=== PATIENT | male | born 1980 | race Caucasian/White ===

== ENCOUNTER 2016-06-23 22:04 | Emergency (ER) | payer OTHER ==
[2016-06-23 22:17] VITALS: BP 138/83; PULSE 80; TEMP 98.2; BMI 31.0
[2016-06-23] MEDS ORDERED: CEPHALEXIN MONOHYDRATE 500 MG CAPSULE (UD) PO ONE (22:39)
[2016-06-23] MEDS ORDERED: FLUCONAZOLE 100 MG TABLET (UD) PO ONE (22:39)
--- NOTE | 2016-06-23 22:39 | PDOC ---
History of Present Illness <Juma Cobb - Last Filed: 06/23/16 22:40> - General History Source: Patient Exam Limitations: No Limitations - History of Present Illness Initial Comments: 06/23/16 22:39 The patient is a 35 year old male with no significant past medical history who presents to the ED with 2 days of penile pain and swelling. Patient states he is in a monogamous relationship with his . His last unprotected sexual intercourse was on Thursday. He states the following day he developed penile pain and swelling with fever. He denies penile discharge. Patient states his was recently diagnosed with marjorie yeast infection and was treated. However, he did not seek medical treatment. The patient denies chills, cough, SOB, chest pain, and palpitations. The patient denies abdominal pain, nausea, vomiting, and diarrhea. The patient denies dysuria, hematuria, urgency, and frequency. Allergies: NKDA Social History: No alcohol, tobacco, or drug use reported. Past Surgical History: hernia repair PCP: Dr. Everett Ha <Mariaa Mendez - Last Filed: 06/23/16 22:41> - General Chief Complaint: Pain, Acute Stated Complaint: SWOLLEN TESTICLES Time Seen by Provider: 06/23/16 22:26 Past History - Past Medical History Other medical history: denies - Immunization History Immunization Up to Date: Yes - Psycho/Social/Smoking Cessation Hx Anxiety: No Suicidal Ideation: No Smoking History: Never smoked Hx Alcohol Use: No <Juma Cobb - Last Filed: 06/23/16 22:40> <Mariaa Mendez - Last Filed: 06/23/16 22:41> - Past Medical History Allergies/Adverse Reactions: Allergies Allergy/AdvReac Type Severity Reaction Status Date / Time No Known Allergies Allergy Verified 06/23/16 22:12 Home Medications: Ambulatory Orders Cephalexin [Keflex] 500 mg PO QID #28 capsule 06/23/16 Review of Systems - Review of Systems Able to Perform ROS?: Yes Is the patient limited Guyanese proficient: No Constitutional: Yes: Symptoms Reported, See HPI, Fever Respiratory: No: Symptoms reported Cardiac (ROS): No: Symptoms Reported ABD/GI: No: Symptoms Reported : Yes: Symptoms Reported, See HPI, Pain, Other (SHAFT SWELLING X 2 DAYS). No : Dysuria, Discharge, Frequency, Flank Pain, Hematuria, Incontinence, Testicular Mass, Testicular Swelling Integumentary: Yes: Symptoms Reported, See HPI, Change in Color All Other Systems: Reviewed and Negative <Juma Cobb - Last Filed: 06/23/16 22:40> - Review of Systems Able to Perform ROS?: Yes <Mariaa Mendez - Last Filed: 06/23/16 22:41> *Physical Exam - Vital Signs Last Vital Signs Temp Pulse Resp BP Pulse Ox 98.2 F 80 18 138/83 100 06/23/16 22:12 06/23/16 22:12 06/23/16 22:12 06/23/16 22:12 06/23/16 22:12 - Physical Exam General Appearance: Yes: Nourished, Appropriately Dressed. No: Apparent Distress HEENT: positive: Normal ENT Inspection Neck: positive: Supple. negative: Tender Respiratory/Chest: positive: Normal Breath Sounds. negative: Respiratory Distress Cardiovascular: positive: Regular Rhythm Gastrointestinal/Abdominal: positive: Normal Bowel Sounds, Soft Male Genitalia: positive: other (EDEMATOUS SHAFT W/ ERYTHEMA OF THE BASE AND LAD LT GROIN. GLANDS NOT EDEMATOUS). negative: discharge, testicular tenderness , testicular mass, epididymus tender, inguinal hernia, CVAT Musculoskeletal: positive: Normal Inspection. negative: CVA Tenderness <Juma Cobb - Last Filed: 06/23/16 22:40> - Vital Signs Last Vital Signs Temp Pulse Resp BP Pulse Ox 98.2 F 80 18 138/83 100 06/23/16 22:12 06/23/16 22:12 06/23/16 22:12 06/23/16 22:12 06/23/16 22:12 <Mariaa Mendez - Last Filed: 06/23/16 22:41> Progress Note - Progress Note Progress Note: BASED ON HX THIS IS LIKELY CANDIDIASIS BUT COULD ALSO BE CELLULITIS WILL START ON ABX AND SYMPTOMATIC TREATMENT WILL FOLLOW P WITH HIS DOCTOR TOMORROW <Juma Cobb - Last Filed: 06/23/16 22:40> *DC/Admit/Observation/Transfer <Juma Cobb - Last Filed: 06/23/16 22:40> - Attestations Scribe Attestion: 06/23/16 22:39 Documentation prepared by Mariaa Mendez, acting as durable medical equipment repairer for Juma Cobb MD <Mariaa Mendez - Last Filed: 06/23/16 22:41> Diagnosis at time of Disposition: Cellulitis, penis - Discharge Dispostion Disposition: HOME Condition at time of disposition: Stable - Prescriptions Prescriptions: Cephalexin [Keflex] 500 mg PO QID #28 capsule - Referrals Referrals: Everett Ha MD [Primary Care Provider] - Call tomorrow - Patient Instructions Additional Instructions: TAKE MEDICATIONS PRESCRIBED IBUPROFEN 400 MG 3 TIMES A DAY FOR 3 DAYS WARM COMPRESSES TO AREA 4-6 TIMES A DAY REST SEE YOUR DOCTOR TOMORROW RETURN IF WORSENING OR NEW SYMPTOMS
[2016-06-23] MEDS ORDERED: FLUCONAZOLE 100 MG TABLET (UD) ONE (22:46)
[2016-06-23] MEDS ORDERED: CEPHALEXIN MONOHYDRATE 250 MG CAPSULE (FP) ONE (22:46)
== END 2016-06-23 22:54 | disposition home or self-care (01) ==
LOC: JER 22:04
DX: N48.22 Cellulitis of corpus cavernosum and penis (principal)
CPT/HCPCS: 99281-25; 99282-25

== ENCOUNTER 2019-08-18 15:26 | Emergency (ER) | payer OTHER ==
[2019-08-18 15:47] VITALS: BP 132/82; PULSE 89; TEMP 98.3; BMI 32.3
--- NOTE | 2019-08-18 15:47 | PDOC ---
Rapid Medical Evaluation Chief Complaint: Shortness of Breath Time Seen by Provider: 08/18/19 15:42 Medical Evaluation: Allergies Allergy/AdvReac Type Severity Reaction Status Date / Time No Known Allergies Allergy Verified 06/23/16 22:12 08/18/19 15:43 Pt c/o: sent from [facility], sudden onset of rt sided back pain with mild dyspnea, no injury or heavy lifting, works as service line bus cleaner Pt on brief exam: lcta, vss, no reprod back/chest pain Pt ordered for: labs, ekg Pt to proceed to the ED Discharge Disposition - Diagnosis Acute back pain - Referrals - Patient Instructions - Post Discharge Activity
[2019-08-18 16:18] LABS: BASO % 0.5 % (0-2.0); HEMATOCRIT 44.1 % (35.4-49); HEMOGLOBIN 15.3 GM/dL (11.7-16.9); LYMPH % 18.2 % (8-40); MCH 31.3 pg (25.7-33.7); MCHC 34.6 g/dl (32.0-35.9); MEAN CELL VOLUME 90.5 fl (80-96); MEAN PLT VOLUME 10.8 fl (7.5-11.1); MONO % 9.6 % (3.8-10.2); NEUT % 69.7 % (42.8-82.8); PLATELET COUNT 189 K/MM3 (134-434); RBC 4.88 M/mm3 (4.00-5.60); RDW 12.9 % (11.9-15.9); WHITE BLOOD COUNT 8.3 K/mm3 (4.0-10.0)
[2019-08-18 16:45] LABS: ALBUMIN 4.3 g/dl (3.4-5.0); BILIRUBIN,TOTAL 0.4 mg/dL (0.2-1); BLOOD UREA NITROGEN 9.9 mg/dL (7-18); CALCIUM 8.5 mg/dL (8.5-10.1); CREATININE 0.9 mg/dL (0.55-1.3); POTASSIUM 4.2 mmol/L (3.5-5.1); TOT PROT 7.6 g/dl (6.4-8.2)
[2019-08-18] MEDS ORDERED: KETOROLAC TROMETHAMINE 30 MG/1 ML VIAL IM ONE (18:24)
--- NOTE | 2019-08-18 18:26 | PDOC ---
Attending Attestation - Resident Resident Name: EndyVitoNasTjtrice - ED Attending Attestation I have performed the following: I have examined & evaluated the patient, The case was reviewed & discussed with the resident, I agree w/resident's findings & plan, Exceptions are as noted - HPI HPI: 08/18/19 18:16 38y M no pmhx presenst with complaint of back pain. Patient states that he started having intermittent upper back pain since yesterday. The patient works as a senior it business analyst states that the pain occurs intermittently feels like a spasm and is sometimes worse with certain positions and movements like when he is turning the steering wheel. The patient denies any shortness of breath, chest pain, hemoptysis, leg swelling, calf pain.. He does not take any exogenous steroids of testosterone. No prior or famili history of PE/DVTs. The patient originally presented to [facility] and had a d-dimer drawn and was slightly elevated 437, upper limit of 399. And was sent here for concern for PE. exam: GENERAL: The patient is awake, alert, and fully oriented, Nontoxic - in no acute distress. HEAD: Normocephalic, atraumatic. LUNGS: Breath sounds equal, clear to auscultation bilaterally. No wheezes, no rhonchi, no rales. HEART: Regular rate and rhythm, normal S1 and S2 without murmur, rub or gallop. ABDOMEN: Soft, nontender, No guarding, no rebound. No CVA tenderness BACK: Reproducible tenderness in the para scapular muscles on the right, pain is exacerbated with movement/arm extension/oushing EXTREMITIES: Normal range of motion, no edema. No calf tenderness, negative Homans sign SKIN: Warm, Dry, normal turgor, no rashes to back I suspect that the patient's back pain is muscular in nature as it is reproducible by touch as well as when the muscle is flexed. The patient has no respiratory symptoms, his vital signs are normal without signs of tachycardia or hypoxia . The patient has an elevated d-dimer, which is very nonspecific - however clinically the patient has no risk factors for a pulmonary embolism and it is unclear why it was originally drawn. At this point the risk of obtaining a CT to evaluate an elevated d-dimer poses a greater risk to his health due to the exposure to radiation. We will treat the patient with Toradol and Flexeril. - Physicial Exam PE: 08/22/19 13:32 see above - Medical Decision Making 08/22/19 13:32 see above Discharge - Discharge Information Problems reviewed: Yes Clinical Impression/Diagnosis: Acute back pain Qualifiers: Back pain location: thoracic back pain Back pain laterality: right Qualified Code(s): M54.6 - Pain in thoracic spine Condition: Improved Disposition: HOME - Follow up/Referral Referrals: Everett Ha MD [Primary Care Provider] - - Patient Discharge Instructions Patient Printed Discharge Instructions: DI for Acute Pain -- Adult Additional Instructions: you were seen in the ER for back pain. Please follow up with your Primary Care Doctor within 48-72 hours - call for an appointment. Ambulate as tolerated and no heavy lifting. Take Motrin 600 mg e very 8 hours for pain with food, If you experience any worsening pain, swelling, numbness, weakness please return to ER - Post Discharge Activity
[2019-08-18] MEDS ORDERED: CYCLOBENZAPRINE HCL 10 MG TABLET (FP) ONE (18:58)
[2019-08-18] MEDS ORDERED: KETOROLAC TROMETHAMINE 30 MG/1 ML VIAL ONE (18:58)
--- NOTE | 2019-08-18 19:01 | PDOC ---
History of Present Illness - General Chief Complaint: Shortness of Breath Stated Complaint: SENT BY DOC Time Seen by Provider: 08/18/19 15:42 - History of Present Illness Initial Comments: 08/18/19 18:59 38 y/o M no significant medical hx, presenting to the ED from urgent care with elevated d-dimer to 437 ( with upper limit of 399) and right sided back pain. 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 pt describes pain as throbbing left sided pain in mid-back worsens whene he turns to the left. He denies any shortness of breath, palpitations. pleuritic chest pain, hx of clots, unilateral leg swelling recent surgery, or Ca diagnosis, fevers, chills, heavy lifting or trauma. Past History - Past Medical History Allergies/Adverse Reactions: Allergies Allergy/AdvReac Type Severity Reaction Status Date / Time No Known Allergies Allergy Verified 08/18/19 15:43 Home Medications: Ambulatory Orders Cephalexin [Keflex] 500 mg PO QID #28 capsule 06/23/16 COPD: No - Immunization History Immunization Up to Date: Yes - Psycho Social/Smoking Cessation Hx Smoking History: Never smoked Hx Alcohol Use: No Review of Systems - Review of Systems Constitutional: No: Chills, Fever HEENTM: No: Eye Pain, Blurred Vision Respiratory: No: Cough, Shortness of Breath Cardiac (ROS): No: Chest Pain, Lightheadedness ABD/GI: No: Nausea, Vomiting : No: Burning, Dysuria Musculoskeletal: No: Back Pain, Joint Pain Neurological: No: Headache, Numbness *Physical Exam - Vital Signs Last Vital Signs Temp Pulse Resp BP Pulse Ox 98.3 F 89 20 132/82 98 08/18/19 15:44 08/18/19 15:44 08/18/19 15:44 08/18/19 15:44 08/18/19 15:44 - Physical Exam 08/18/19 19:01 GENERAL: Awake, alert, and fully oriented, in no acute distress HEAD: No signs of trauma, normocephalic, atraumatic EYES: PERRLA, EOMI, sclera anicteric, conjunctiva clear ENT: Auricles normal inspection, hearing grossly normal, nares patent, oropharynx clear without exudates. Moist mucosa NECK: Normal ROM, supple, no lymphadenopathy, JVD, or masses LUNGS: No distress, speaks full sentences, clear to auscultation bilaterally HEART: Regular rate and rhythm, normal S1 and S2, no murmurs, rubs or gallops, peripheral pulses normal and equal bilaterally. ABDOMEN: Soft, nontender, normoactive bowel sounds. No guarding, no rebound. No masses EXTREMITIES : Normal inspection, Normal range of motion, no edema. No clubbing or cyanosis NEUROLOGICAL: Cranial nerves II through XII grossly intact. Normal speech, normal gait, no focal sensorimotor deficits SKIN: Warm, Dry, normal turgor, no rashes or lesions noted ED Treatment Course - LABORATORY CBC & Chemistry Diagram: 08/18/19 15:50 08/18/19 15:50 - ADDITIONAL ORDERS Additional order review: Laboratory Results 08/18/19 15:50 Sodium 139 Potassium 4.2 Chloride 105 Carbon Dioxide 26 Anion Gap 8 BUN 9.9 Creatinine 0.9 Est GFR (CKD-EPI)AfAm 126.90 Est GFR (CKD-EPI)NonAf 109.49 Random Glucose 92 Calcium 8.5 Total Bilirubin 0.4 AST 24 ALT 28 Alkaline Phosphatase 85 Total Protein 7.6 Albumin 4.3 Lipase 80 08/18/19 15:50 RBC 4.88 MCV 90.5 MCHC 34.6 RDW 12.9 MPV 10.8 Neutrophils % 69.7 Lymphocytes % 18.2 Monocytes % 9.6 Eosinophils % 2.0 Basophils % 0.5 Medical Decision Making - Medical Decision Making 08/19/19 10:21 38 y/o M no significant medical hx, presenting to the ED from urgent care with elevated d-dimer to 437 ( with upper limit of 399) and right sided back pain low likelihood of Pulmonary embolism. pain is more likely muscular in nature pt given motrin and flexaril feeling well enough for discharge at this time. 08/19/19 10:22 Discharge - Discharge Information Problems reviewed: Yes Clinical Impression/Diagnosis: Acute back pain Qualifiers: Back pain location: thoracic back pain Back pain laterality: right Qualified Code(s): M54.6 - Pain in thoracic spine Condition: Improved Disposition: HOME - Follow up/Referral Referrals: Everett Ha MD [Primary Care Provider] - - Patient Discharge Instructions Patient Printed Discharge Instructions: DI for Acute Pain -- Adult Additional Instructions: you were seen in the ER for back pain. Please follow up with your Primary Care Doctor within 48-72 hours - call for an appointment. Ambulate as tolerated and no heavy lifting. Take Motrin 600 mg every 8 hours for pain with food, If you experience any worsening pain, sw elling, numbness, weakness please return to ER - Post Discharge Activity
[2019-08-19] MEDS ORDERED: CYCLOBENZAPRINE HCL 5 MG TABLET PO ONE (18:25)
--- NOTE | 2019-08-20 11:28 | EKG ---
Test Reason : Blood Pressure : / mmHG Vent. Rate : 074 BPM Atrial Rate : 074 BPM P-R Int : 162 ms QRS Dur : 096 ms QT Int : 370 ms P-R-T Axes : 022 064 027 degrees QTc Int : 410 ms NORMAL SINUS RHYTHM NORMAL ECG NO PREVIOUS ECGS AVAILABLE Confirmed by MD Phil, Ga ([id number]) on 08/20/2019 11:28:19 AM Referred By: Confirmed By:Ga Villarreal MD
== END 2019-08-18 19:07 | disposition home or self-care (01) ==
LOC: JER 15:26
PROC: 3E0233Z Introduction of Anti-inflammatory into Muscle, Percutaneous Approach (ICD-10-PCS; principal; 2019-08-18)
DX: M54.6 Pain in thoracic spine (principal)
CPT/HCPCS: 36415; 80053; 83690; 85025; 93005; 93010; 99284-25